=== PATIENT | female | born 1930 | race Caucasian/White ===

== ENCOUNTER → 2016-12-17 | Outpatient (CLI) | payer MEDICARE, OTHER ==
[~2016-12-17] MED LIST: CALTTAB2 PO; HYDR-3533 PO; SIMV20 PO; TAB-TAB PO; VITA400C28 PO
[2016-12-17 13:08] LABS: HEMATOCRIT 39.8 % (35.0-46.0); MEAN CELL VOLUME 94.4 FL (80.0-100.0); MEAN CORPUSCULAR HEMOGLOBIN 32.1 PG (27.0-34.0); PLATELET COUNT 254 TH/MM3 (150-450); RED BLOOD COUNT 4.22 MIL/MM3 (4.00-5.30); RED CELL DISTRIBUTION WIDTH 14.4 % (11.6-17.2); REVIEW FLAG FINAL; WHITE BLOOD COUNT 5.7 TH/MM3 (4.0-11.0)
[2016-12-17 13:31] LABS: ALT (GPT) 27 U/L (10-53); ANION GAP 6 MEQ/L (5-15); AST (GOT) 21 U/L (15-37); BICARBONATE 29.7 MEQ/L (21.0-32.0); BLOOD UREA NITROGEN 10 MG/DL (7-18); CHLORIDE 106 MEQ/L (98-107); GLOMERULAR FILTRATION RATE 95 ML/MIN (>89); GLUCOSE,FASTING 84 MG/DL (74-99); SODIUM (NA) 142 MEQ/L (136-145)
[2016-12-17 13:34] LABS: ALKALINE PHOSPHATASE 55 U/L (45-117); HDL CHOLESTEROL 70.7 MG/DL (40.0-60.0); LDL CHOLESTEROL 136 MG/DL (0-99); LDL CHOLESTEROL DIRECT 142 MG/DL (0-99); TOTAL BILIRUBIN ADULT 0.4 MG/DL (0.2-1.0)
== END ==
LOC: PLAB 11:01
PROVIDERS: ATTEND Internal Medicine
DX: Z00.00 Encounter for general adult medical examination without abnormal findings (principal); I10 Essential (primary) hypertension
CPT/HCPCS: 36415; 80053; 80061; 83721; 85027